=== PATIENT | female | born 1950 | race Caucasian/White ===

== ENCOUNTER 2016-03-31 13:49 | Outpatient (CLI) | payer OTHER ==
--- NOTE | 2016-03-31 14:46 | CT ---
Exam: CT cervical spine without contrast. Clinical indication: Neck pain. TECHNIQUE: Axial unenhanced CT images from the upper thoracic spine through the skull base were obt ained followed by coronal and sagittal reformats. Comparison is made to the prior study dated 10/12/2013. Findings: There is no prevertebral soft tissue swelling. There is straightening of the normal cervical lordosis. The remainder of the alignment is within no rmal limits. The odontoid is intact. The atlanto-occipital and atlantoaxial articulations are within normal limi ts. There is no evidence of acute fracture. There are degenerative changes at the articulation between the odontoid and the anterior arch of C1. At the C2-C3 level there is a mild posterior disc bulge associate with asymmetric left greater than right facet hypertrophic degenerative changes, causing mild left neural foraminal narrowing, but no right neural foraminal narrowing or spinal stenosis. At the C3-C4 level there is asymmetric right greater than left facet and uncovertebral hypertrophic degenerative changes, but no spinal stenosis or neural foraminal narrowing. At the C4-C5 level there is a mild posterior disc osteophyte complex associate with asymmetric left greater than right facet and uncovertebral degenerative changes, causing moderate left and mild righ t neural foraminal narrowing, but no spinal stenosis. At the C5-C6 level there is moderate degenerative disc disease associate with a moderate left parace ntral/foraminal disc osteophyte complex and bilateral facet and uncovertebral hypertrophic degenerat yun changes, causing moderate spinal stenosis and moderate to severe bilateral neural foraminal narr owing. At the C6-C7 level there is moderate degenerative disc disease associate with a mild posterior disc osteophyte complex and bilateral facet and uncovertebral hypertrophic degenerative changes causing o f severe bilateral neural foraminal narrowing and borderline spinal stenosis. At the C7-T1 level there is some mild facet degenerative changes, but no spinal stenosis or neural f oraminal narrowing. The pulmonary parenchyma is clear. Although it is not completely included in the visual field there may be a 3.4 cm left thyroid mass. There are some right-sided thyroid nodules as well. Impression: 1. Straightening of the normal cervical lordosis. 2. Multilevel cervical degenerative changes with spinal stenosis and neural foraminal narrowing, as described above on the level by level basis. 3. Probable 3.4 cm left thyroid mass. Suggest further characterization with a sonogram.
== END 2016-03-31 13:50 | disposition home or self-care (01) ==
LOC: RAD 13:49
PROVIDERS: ATTEND Internal Medicine
DX: M54.2 Cervicalgia (principal)

== ENCOUNTER 2016-04-03 12:43 | Outpatient (CLI) ==
--- NOTE | 2016-04-03 13:44 | US ---
EXAM: Thyroid ultrasound HISTORY: Left thyroid mass. COMPARISON: CT cervical spine 03/31/2016 and thyroid ultrasound 10/18/[address] cervical spine TECHNIQUE: Sonographic evaluation of the thyroid was performed with limited doppler. FINDINGS: The right thyroid measures 5.3 x 2.5 x 2.0 cm. There is heterogeneous echotexture with numerous sca ttered thyroid nodules. The largest measures 1.8 x 1.2 x 1.6 cm. This is similar when compared to prior. This demonstrates mild peripheral color Doppler flow. Numerous additional nodules and cysts are identified throughout the right thyroid. The isthmus measures 0.6 cm in thickness and is heterogeneous in echogenicity. The left lobe of the thyroid measures 5.4 x 4.0 x 3.4 cm. This is heterogeneous in appearance with normal color Doppler flow. There are multiple nodules, the largest left thyroid nodule demonstrates central area of hypo echogenicity and measures 4.1 x 3.2 x 3.3 centimeters with mild peripheral Dop pler flow. This is similar appearance to prior exam 2013 , but increased in size with measurements o f 2.8 x 3.2 x 2.4 cm on prior. Additional smaller cystic lesions are identified and not significantl y changed since prior. IMPRESSION: Innumerable bilateral thyroid nodules. The largest on the right is unchanged dating back to 2013. The largest on the left is similar in appearance with measurement increased in comparison to prior. This may represent incorporation of immediate adjacent nodules into measurements, but enlarging lef t thyroid nodule cannot be excluded. Given size and interval increase, biopsy is recommended versus correlation with previous biopsy if performed.
== END 2016-04-03 12:44 | disposition home or self-care (01) ==
LOC: RAD 12:43
PROVIDERS: ATTEND Internal Medicine
DX: E04.1 Nontoxic single thyroid nodule (principal)

== ENCOUNTER 2017-01-12 10:31 | Outpatient (CLI) ==
--- NOTE | 2017-01-12 11:36 | MAMMO ---
EXAM: Screening mammogram with 3-D tomosynthesis and CAD HISTORY: Screening mammogram. COMPARISON: Mammogram 01/15/2015 FINDINGS: Breasts demonstrate scattered fibroglandular density. There are bilateral vascular and sca ttered benign calcifications. Tomosynthesis is well normal in appearance bilaterally. There is no ne ural or suspicious nodule or calcification. IMPRESSION: No new or suspicious calcification or nodule. Recommendation: Annual screening mammogram. BIRADS II: Benign findings
== END 2017-01-12 10:32 | disposition home or self-care (01) ==
LOC: RAD 10:31
PROVIDERS: ATTEND Internal Medicine
DX: Z12.31 Encounter for screening mammogram for malignant neoplasm of breast (principal)
CPT/HCPCS: 77067

== ENCOUNTER 2017-09-09 11:42 | Outpatient (CLI) | payer OTHER ==
--- NOTE | 2017-09-09 12:47 | DI ---
EXAM: Left wrist three-view HISTORY: Fell COMPARISON: None FINDINGS: No fracture or dislocation. Mild to moderate osteoarthritis first MCP joint with joint sp jacquelyn narrowing osteophyte formation. Mild osteoarthritis STT joint. No focal soft tissue abnormality. IMPERSSION: 1. No fracture or dislocation. 2. Osteoarthritis
--- NOTE | 2017-09-09 12:49 | DI ---
EXAM: Two views of the left forearm HISTORY: Pain post fall. COMPARISON: Left wrist x-rays same day FINDINGS: There is no cortical irregularity or displaced fracture. There is mild degenerative change and osteophyte formation of the left elbow. The left wrist is better visualized on same date dedica kellen x-rays. Soft tissues are normal. IMPRESSION: No acute abnormality or displaced fracture of the left forearm with mild degenerative disease of the elbow.
== END 2017-09-09 11:43 | disposition home or self-care (01) ==
LOC: RAD 11:42
PROVIDERS: ATTEND Internal Medicine
DX: M25.532 Pain in left wrist (principal); M79.602 Pain in left arm; W19.XXXA Unspecified fall, initial encounter

== ENCOUNTER 2017-12-10 11:44 | Outpatient (CLI) | payer OTHER ==
--- NOTE | 2017-12-10 13:22 | US ---
EXAM: Bilateral carotid artery Doppler History: Dizziness. Comparison: Carotid Doppler 10/13/2013 Technique: Multiple sonographic images through the bilateral internal carotid arteries were obtained . Color duplex Doppler was used to interrogate vascular flow. Findings: The right ICA peak systolic velocity is within normal limits measuring 1.1 meters per second. The rig ht ICA/cca PSV ratio is normal measuring 1.2. The right vertebral artery is patent and demonstrates antegrade flow. Grewal scale images demonstrate no significant plaque buildup within the right interna l carotid artery. The left ICA peak systolic velocity is within normal limits measuring 0.8 meters per second. The lef t ICA/cca PSV ratio is normal at 0.7. The left vertebral artery is patent and demonstrates antegrade flow. Grewal scale images demonstrate no significant plaque buildup within the left internal carotid artery. Multiple bilateral thyroid nodules with the largest in the left thyroid lobe being solid measuring 4. 8 cm. Impression: 1. No significant hemodynamic stenosis of the bilateral internal carotid arteries. 2. Multiple bilateral thyroid nodules. Correlate with thyroid ultrasound.
== END 2017-12-10 11:45 | disposition home or self-care (01) ==
LOC: RAD 11:44
PROVIDERS: ATTEND Internal Medicine
DX: R42 Dizziness and giddiness (principal)

== ENCOUNTER 2017-12-23 11:51 | Outpatient (CLI) | payer OTHER ==
--- NOTE | 2017-12-23 13:32 | US ---
EXAM: Thyroid ultrasound HISTORY: Previous biopsy benign thyroid lesion with multiple nodules. COMPARISON: Thyroid ultrasound 04/03/2016 and 10/18/2013 TECHNIQUE: Sonographic evaluation of the thyroid was performed with limited doppler. FINDINGS: The right thyroid measures 5.8 x 2.5 x 2.1 cm. This is heterogeneous in appearance with sy mmetric mild increased echogenicity. Multiple complex nodules are present with the largest measuring 2.3 x 1.1 x 1.6 centimeters. There is no abnormal calcification present. The isthmus measures 0.6 cm in thickness. The left thyroid measures 6.5 x 3.9 x 3.8 cm. There is a large heterogeneous mass/nodule with buyer intern al color Doppler flow measuring 5.4 x 3.6 x 4.0 cm. Overall appearance is not significantly changed from prior exam. IMPRESSION: Multiple relatively unchanged thyroid nodules with history of previous benign biopsies suggestive of multinodular goiter. There has been no significant change dating back to 2013
== END 2017-12-23 11:52 | disposition home or self-care (01) ==
LOC: RAD 11:51
PROVIDERS: ATTEND Internal Medicine
DX: E04.2 Nontoxic multinodular goiter (principal)
CPT/HCPCS: 36415; 84439; 84443

== ENCOUNTER 2018-03-17 13:11 | Outpatient (CLI) ==
--- NOTE | 2018-03-19 08:44 | MAMMO ---
EXAM: Bilateral digital screening mammogram (2-D and 3-D) History: Screening Comparison: Bilateral mammogram 01/12/2017 Technique: MLO and CC views of bilateral breasts demonstrate predominately fatty replaced breast par enchyma. Stable benign bilateral vascular and scattered calcifications. CAD was reviewed by the rad iologist. Tomosynthesis was performed. There are no dominant masses, no suspicious microcalcificati ons and no architectural distortions. Impression: Benign stable mammogram. Recommend followup routine screening mammography in 1 year. BIRADS 2, benign
== END 2018-03-17 13:12 | disposition home or self-care (01) ==
LOC: RAD 13:11
PROVIDERS: ATTEND Internal Medicine
DX: Z12.31 Encounter for screening mammogram for malignant neoplasm of breast (principal)